=== PATIENT | male | born 1985 | race Caucasian/White ===

== ENCOUNTER 2021-09-09 10:00 | Emergency (ER) | payer SELFPAY ==
[~2021-09-09] VITALS: Ht 175.3 cm; Wt 86.2 kg
[2021-09-09 10:04] VITALS: BP 136/80
[2021-09-09] MEDS ORDERED: CEPH500C2 PO (10:55)
[2021-09-09] MEDS ORDERED: SULF1TAB48 PO (10:55)
[2021-09-09] MEDS ORDERED: CEPHALEXIN MONOHYDRATE 500 MG CAPSULE PO ONE ×2 (10:58→11:00)
[2021-09-09] MEDS ORDERED: SULFAMETH/TRIMETH 800/160 MG 1 UDTAB TABLET ONE (10:59)
[2021-09-09] MEDS ORDERED: SULFAMETH/TRIMETH 800/160 MG 1 UDTAB TABLET PO ONE (11:00)
--- NOTE | 2021-09-09 11:03 | NUR ---
seen and evaluated by dr ellison, medicated. prescription sent to preffered pharmacy.
== END 2021-09-09 11:06 | disposition home or self-care (01) ==
LOC: ER 10:07
DX: L03.114 Cellulitis of left upper limb (principal); L03.113 Cellulitis of right upper limb; L03.116 Cellulitis of left lower limb; L03.115 Cellulitis of right lower limb; Z59.00 Homelessness unspecified

== ENCOUNTER 2021-10-07 17:01 | Emergency (ER) | payer OTHER ==
[~2021-10-07] VITALS: Ht 167.6 cm; Wt 83.9 kg
[~2021-10-07 17:01] MED LIST: CEPH500C2 PO; SULF1TAB48 PO
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
[2021-10-07] MEDS ORDERED: SULF1TAB48 PO (17:27)
[2021-10-07] MEDS ORDERED: CEPH500C2 PO (17:27)
--- NOTE | 2021-10-07 17:42 | NUR ---
Patient discharged in stable condition with [employer] officers. Written and verbal after care instructions given. The patient and the officers verbalize understanding of instruction.
[2021-10-07 17:43] VITALS: BP 136/85
== END 2021-10-07 17:43 ==
LOC: ER 17:02
DX: L03.115 Cellulitis of right lower limb (principal); H10.219 Acute toxic conjunctivitis, unspecified eye; Z59.00 Homelessness unspecified